=== PATIENT | female | born 1960 | race Caucasian/White ===

== ENCOUNTER 2018-11-01 06:38 | Emergency (ER) | payer OTHER ==
[2018-11-01] MEDS ORDERED: HYDROCODONE/APAP 7.5/325 MG TAB ONE (07:12)
--- NOTE | 2018-11-01 08:36 | EDPHYS ---
Physician Documentation [facility] Name: Anay Lujan Age: 58 yrs Sex: Female : 1960 Arrival Date: 11/01/2018 Time: 06:41 Bed 20 Private MD: Bryce Galvan ED Physician Ramu Terry HPI: 11/01 07:02 This 58 yrs old Female presents to ER via Ambulatory with complaints of Fall jr8 Injury, Arm Injury, Wrist Injury. 07:02 Details of fall: The patient fell from an upright position, while standing. Onset: The jr8 symptoms/episode began/occurred acutely, last night. Associated injuries: The patient sustained right arm, decreased range of motion, ecchymosis, painful injury, swelling. Severity of symptoms: At their worst the symptoms were moderate, in the emergency department the symptoms are unchanged. The patient has not experienced similar symptoms in the past. The patient has not recently seen a physician. Patient was getting out of shower and slipped on rug. Tried to brace herself and hit her right wrist/forearm region. Iced extremity last night but still with swelling and pain that has increased . Historical: - Allergies: 06:56 No Known Allergies; tw2 - Home Meds: 06:56 estrogen [Active]; tw2 - PMHx: 06:58 None; jb4 - PSHx: 06:58 Hysterectomy; jb4 - Immunization history:: Adult Immunizations. - Social history:: Smoking status: Patient uses alcohol. - Ebola Screening: : Patient denies travel to an Ebola-affected area in the 21 days before illness onset. ROS: 07:02 Constitutional: Negative for fever, chills, and weight loss. jr8 07:02 MS/extremity: Positive for decreased range of motion, ecchymosis, pain, swelling, tenderness, of the right arm. 07:02 All other systems are negative. Exam: 07:02 Constitutional: This is a well developed, well nourished patient who is awake, alert, jr8 and in no acute distress. Head/Face: Normocephalic, atraumatic. Neck: Trachea midline, no thyromegaly or masses palpated, and no cervical lymphadenopathy. Supple, full range of motion without nuchal rigidity, or vertebral point tenderness. No Meningismus. Cardiovascular: Regular rate and rhythm with a normal S1 and S2. No gallops, murmurs, or rubs. Normal PMI, no JVD. No pulse deficits. Respiratory: Lungs have equal breath sounds bilaterally, clear to auscultation and percussion. No rales, rhonchi or wheezes noted. No increased work of breathing, no retractions or nasal flaring. Abdomen/GI: Soft, non-tender, with normal bowel sounds. No distension or tympany. No guarding or rebound. No evidence of tenderness throughout. Back: No spinal tenderness. No costovertebral tenderness. Full range of motion. Skin: Warm, dry with normal turgor. Normal color with no rashes, no lesions, and no evidence of cellulitis. Neuro: Awake and alert, GCS 15, oriented to person, place, time, and situation. Cranial nerves II-XII grossly intact. Motor strength 5/5 in all extremities. Sensory grossly intact. Cerebellar exam normal. Normal gait. 07:02 Musculoskeletal/extremity: Extremities: grossly normal except: noted in the right wrist: decreased ROM, ecchymosis, pain, swelling, tenderness, ROM: intact in all extremities, limited active range of motion due to pain, in the right wrist, limited passive range of motion due to pain, in the right wrist, Circulation is intact in all extremities. Sensation intact. Vital Signs: 06:58 BP 152 / 77; Pulse 87; Resp 18; Temp 98.5(O); Pulse Ox 100% on R/A; Weight 74.84 kg jb4 (R); Height 5 ft. 10 in. (177.80 cm) (R); Pain 10/10; 07:51 BP 139 / 74; Pulse 69; Resp 17; Pulse Ox 98% on R/A; tw2 06:58 Body Mass Index 23.67 (74.84 kg, 177.80 cm) jb4 Procedures: 08:28 Splinting: Splint applied to right wrist using Orthoglass splint, applied by tech. rivera nurse. Examined by me, post splint application: neurovascular intact, 2+ distal pulses palpable, brisk capillary refill noted, Patient tolerated well. MDM: 06:46 Patient medically screened. jr8 08:28 Data reviewed: vital signs, nurses notes, radiologic studies, plain films, and as a jr8 result, I will discharge patient. Data interpreted: Pulse oximetry: on room air is 98 %. Interpretation: normal. Counseling: I had a detailed discussion with the patient and/or guardian regarding: the historical points, exam findings, and any diagnostic results supporting the discharge/admit diagnosis, radiology results, the need for outpatient follow up, a orthopedic surgeon, to return to the emergency department if symptoms worsen or persist or if there are any questions or concerns that arise at home. 11/01 06:57 Order name: XRAY Wrist RIGHT 3 view jr8 11/01 08:28 Order name: Sugar Tong Forearm Splint; Complete Time: 08:49 jr8 Administered Medications: 07:06 Drug: [place] (7.5 mg-325 mg) 1 tabs Route: PO; tw2 08:48 Follow up: Response: No adverse reaction; Pain is decreased tw2 Disposition: 11/01/18 08:35 Discharged to Home. Impression: Distal Radius fracture. - Condition is Stable. - Discharge Instructions: Wrist Fracture Treated With Immobilization. - Prescriptions for Ibuprofen 800 mg Oral Tablet - take 1 tablet by ORAL route every 12 hours As needed take with food; 20 tablet. Tylenol- Codeine #3 300-30 mg Oral Tablet - take 2 tablet by ORAL route every 6 hours As needed; 30 tablet. - Medication Reconciliation Form, Thank You Letter, Antibiotic Education, Prescription Opioid Use, Work release form form. - Follow up: Ricardo Melo MD; When: 1 - 2 days; Reason: Recheck today's complaints, Continuance of care, Re-evaluation by your physician. - Problem is new. - Symptoms have improved. Addendum: 11/03/2018 08:00 Co-signature as Attending Physician, Ramu Terry MD. r n Signatures: Dispatcher [employer] EDRamu Heart MD MD rn Roszak, Josh, PA PA jr8 Kaitlynn Collins RN RN tw2 Doc Barger RN RN jb4 Corrections: (The following items were deleted from the chart) 11/01 08:50 08:35 11/01/2018 08:35 Discharged to Home. Impression: Distal Radius fracture. tw2 Condition is Stable. Forms are Medication Reconciliation Form, Thank You Letter, Antibiotic Education, Prescription Opioid Use. Follow up: Ricardo Melo; When: 1 - 2 days; Reason: Recheck today's complaints, Continuance of care, Re-evaluation by your physician. Problem is new. Symptoms have improved. jr8
--- NOTE | 2018-11-01 08:36 | ER ---
Nurse's Notes [facility] Name: Anay Lujan Age: 58 yrs Sex: Female : 1960 Arrival Date: 11/01/2018 Time: 06:41 Bed 20 Private MD: Bryce Galvan Diagnosis: Distal Radius fracture Presentation: 11/01 06:57 Transition of care: patient was not received from another setting of care. Risk tw2 Assessment: Do you want to hurt yourself or someone else? Patient reports no desire to harm self or others. Initial Sepsis Screen: Does the patient meet any 2 criteria? No. Patient's initial sepsis screen is negative. Does the patient have a suspected source of infection? No. Patient's initial sepsis screen is negative. Care prior to arrival: None. 06:57 Method Of Arrival: Ambulatory tw2 06:58 Presenting complaint: Patient states: I was taking a shower last night and when I went jb4 to get out of the shower I stepped on my rug and slipped and fell. I broke my fall with my right arm and I think I sprang my wrist. Onset of symptoms was October 01, 2018. 06:58 Acuity: LELA 3 jb4 Triage Assessment: 06:58 General: Appears in no apparent distress. uncomfortable, Behavior is calm, cooperative, jb4 appropriate for age. Pain: Complains of pain in right arm Pain does not radiate. Pain currently is 10 out of 10 on a pain scale. Quality of pain is described as radiating, Pain began 1 day ago. EENT: No signs and/or symptoms were reported regarding the EENT system. Neuro: Level of Consciousness is awake, alert, obeys commands, Oriented to person, place, time, situation. Cardiovascular: Patient's skin is warm and dry. Pulses are 3+ in right radial artery. Respiratory: Airway is patent Respiratory effort is even, unlabored, Respiratory pattern is regular, symmetrical. GI: No signs and/or symptoms were reported involving the gastrointestinal system. : No signs and/or symptoms were reported regarding the genitourinary system. Derm: Skin is intact, Skin is pink, warm \T\ dry. Musculoskeletal: Capillary refill < 3 seconds, in right fingers. Range of motion: limited in right wrist Swelling present in dorsal aspect of right forearm, right wrist and right hand. Historical: - Allergies: 06:56 No Known Allergies; tw2 - Home Meds: 06:56 estrogen [Active]; tw2 - PMHx: 06:58 None; jb4 - PSHx: 06:58 Hysterectomy; jb4 - Immunization history:: Adult Immunizations. - Social history:: Smoking status: Patient uses alcohol. - Ebola Screening: : Patient denies travel to an Ebola-affected area in the 21 days before illness onset. Screenin:55 Abuse screen: Denies threats or abuse. Nutritional screening: No deficits noted. tw2 Tuberculosis screening: No symptoms or risk factors identified. Fall Risk None identified. Assessment: 06:58 General: see triage assessment.. jb4 07:52 Reassessment: Patient appears in no apparent distress at this time. Patient and/or tw2 family updated on plan of care and expected duration. Pain level reassessed. Patient is alert, oriented x 3, equal unlabored respirations, skin warm/dry/pink. 08:49 Reassessment: Patient appears in no apparent distress at this time. Patient and/or tw2 family updated on plan of care and expected duration. Pain level reassessed. Patient is alert, oriented x 3, equal unlabored respirations, skin warm/dry/pink. Patient states feeling better. Vital Signs: 06:58 BP 152 / 77; Pulse 87; Resp 18; Temp 98.5(O); Pulse Ox 100% on R/A; Weight 74.84 kg jb4 (R); Height 5 ft. 10 in. (177.80 cm) (R); Pain 10/10; 07:51 BP 139 / 74; Pulse 69; Resp 17; Pulse Ox 98% on R/A; tw2 06:58 Body Mass Index 23.67 (74.84 kg, 177.80 cm) jb4 ED Course: 06:41 Patient arrived in ED. es 06:41 Bryce Galvan MD is Private Physician. es 06:46 Doc Barger, RN is Primary Nurse. jb4 06:46 King Palomino PA is PHCP. jr8 06:46 Ramu Terry MD is Attending Physician. jr8 06:57 Primary Nurse role handed off by Doc Barger, RN tw2 06:57 Kaitlynn Collins RN is Primary Nurse. tw2 06:57 Arm band placed on. tw2 06:57 Bed in low position. Call light in reach. Pulse ox on. NIBP on. tw2 06:59 Triage completed. jb4 08:23 X-ray completed. Portable x-ray completed in exam room. Patient tolerated procedure jb2 well. 08:35 Ricardo Melo MD is Referral Physician. jr8 08:49 No provider procedures requiring assistance completed. Patient did not have IV access tw2 during this emergency room visit. 08:49 sugar tong splint applied by Olman Ayers, CMS intact, pt tolerated well, kj wrapped tw2 to secure. Administered Medications: 07:06 Drug: [place] (7.5 mg-325 mg) 1 tabs Route: PO; tw2 08:48 Follow up: Response: No adverse reaction; Pain is decreased tw2 Outcome: 08:35 Discharge ordered by MD. jr8 08:50 Discharged to home ambulatory, with significant other. tw2 08:50 Condition: stable 08:50 Discharge instructions given to patient, significant other, Instructed on discharge instructions, follow up and referral plans. no drinking with medication, no driving heavy equipment, medication usage, splint care Demonstrated understanding of instructions, follow-up care, medications, splint care, Prescriptions given X 2. 08:50 Patient left the ED. tw2 Signatures: Kaelyn Chavez Jesse jb2 King Palomino PA PA jr8 Kaitlynn Collins, RN RN tw2 Doc Barger, RN RN jb4
--- NOTE | 2018-11-01 10:22 | RAD REPORT ---
EXAM DESCRIPTION: RAD - Wrist Right 3 View - 11/01/2018 8:25 am CLINICAL HISTORY: Right wrist pain status post fall FINDINGS: Minimally displaced fracture involves the distal right radius. Ulnar styloid process fract ure is seen No dislocation noted
== END 2018-11-01 08:50 | disposition home or self-care (01) ==
LOC: ER 06:38
PROC: 2W3CX1Z Immobilization of Right Lower Arm using Splint (ICD-10-PCS; principal; 2018-11-01)
DX: S52.501A Unspecified fracture of the lower end of right radius, initial encounter for closed fracture (principal); W18.2XXA Fall in (into) shower or empty bathtub, initial encounter; Y93.89 Activity, other specified; Y92.002 Bathroom of unspecified non-institutional (private) residence as the place of occurrence of the external cause
CPT/HCPCS: 99284

== ENCOUNTER → 2019-03-09 | Day surgery (SDC) | payer OTHER ==
--- NOTE | 2019-03-09 12:17 | RAD REPORT ---
EXAM DESCRIPTION: US - Breast Core BX w/US Guidance - 03/09/2019 10:45 am CLINICAL HISTORY: ICD N63.0 COMPARISON: March 01 2019 ultrasound TECHNIQUE: The risks, benefits alternatives to the procedure were explained to the patient and infor med consent obtained. Skin and subcutaneous tissues anesthetized with lidocaine. Under sonographic guidance, one 14 gauge vacuum assisted core biopsy of the 5 millimeter mass within the upper left breast obtained. 2 centimeter specimen taken. Material given to pathology. Ultrasound demonstrates that the 5 millimeter hypoechoic mass has collapsed so additional biopsy not performed Patient experienced no immediate complication IMPRESSION: Vacuum assisted core biopsy of the left breast mass. The mass collapsed after the biopsy which most likely indicates that the mass represents a complex cyst
== END ==
LOC: DS 09:09
PROVIDERS: ATTEND Obstetrics & Gynecology
DX: N60.92 Unspecified benign mammary dysplasia of left breast (principal); N61.0 Mastitis without abscess
CPT/HCPCS: 19083; 88305